=== PATIENT | female | born 1970 | race Caucasian/White ===

== ENCOUNTER → 2019-01-06 08:21 | Outpatient (CLI) | payer OTHER, SELFPAY ==
[2019-01-06 09:23] LABS: Add Manual Diff / Slide Review NO; Basophils Absolute Auto 0 /uL (0-100); Basophils Percent Auto 0.7 % (0-2); Eosinophils Absolute Auto 100 /uL (0-450); Hematocrit 40.1 % (36-46); Hemoglobin 14.1 g/dL (12.0-16.0); Lymphocytes Absolute Auto 2200 /uL (1100-4500); Lymphocytes Percent Auto 34.5 % (25-40); Mean Corpuscular HGB Conc 35.1 % (30-36); Mean Corpuscular Hemoglobin 32.9 PG (26-34); Mean Corpuscular Volume 93.6 fL (80-100); Monocytes Absolute Auto 300 /uL (0-900); Monocytes Percent Auto 4.5 % (3-14); Neutrophils Absolute Auto 3800 /uL (1500-7000); Neutrophils Percent Auto 59.3 % (50-75); Platelet Count 191 X10^3/uL (150-400); Red Blood Cell Count 4.28 X10^6/uL (4.0-5.2); Red Cell Distribution Width 12.6 % (11.6-14.8); White Blood Cell Count 6.5 X10^3/uL (4.5-11.0)
[2019-01-06 09:31] LABS: BUN Creatinine Ratio 15.7 (6-22); Blood Urea Nitrogen 11 mg/dL (7-17); Calcium 9.4 mg/dL (8.4-10.2); Carbon Dioxide 25 mmol/L (22-32); Chloride 105 mmol/L (98-107); Cholesterol 210 mg/dL (140-199); Estimated Glomerular Filt Rate > 60.0 mL/min (>60); Glucose 100 mg/dL (70-100); HEMOLYSIS < 15 (0-50); Potassium 4.4 mmol/L (3.4-5.1); Sodium 139 mmol/L (137-145)
[2019-01-06 10:04] LABS: Erythrocyte Sedimentation Rate 8 MM/HR (0-20)
== END ==
PROVIDERS: Family Provider Internal Medicine; PCP Internal Medicine; Visit Provider Physician Assistant
DX: R07.89 Other chest pain (principal); R30.0 Dysuria
CPT/HCPCS: 36415; 80048; 82465; 85025; 85651; 87077; 87086; 87186

== ENCOUNTER 2019-01-09 14:33 | Emergency (ER) | payer OTHER, SELFPAY ==
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
[2019-01-09 15:05] VITALS: BP 121/77; PULSE 60; RESP 18; TEMP 36.6; O2SAT 98; BMI 25.0
[2019-01-09] MEDS: LIDOCAINE PATCH 1 EACH ADH..PATCH TOP (15:55)
[2019-01-09] MEDS: KETOROLAC 60 MG/2 ML VIAL IM (15:55)
[2019-01-09 16:12] VITALS: BP 118/46; PULSE 62; RESP 16; O2SAT 98
[2019-01-09 16:22] VITALS: BP 121/76; PULSE 61
== END 2019-01-09 16:23 | disposition home or self-care (01) ==
PROVIDERS: Emergency Provider Emergency Medicine; Family Provider Internal Medicine; PCP Internal Medicine
DX: S16.1XXA Strain of muscle, fascia and tendon at neck level, initial encounter (principal); S06.0X0A Concussion without loss of consciousness, initial encounter; S13.4XXA Sprain of ligaments of cervical spine, initial encounter; V89.2XXA Person injured in unspecified motor-vehicle accident, traffic, initial encounter; Y92.410 Unspecified street and highway as the place of occurrence of the external cause
CPT/HCPCS: 96372; 99283; J1885

== ENCOUNTER 2022-01-23 11:32 | Emergency (ER) | payer OTHER, SELFPAY ==
[2022-01-23] VITALS (24 sets, daily range): BP systolic 118–138; BP diastolic 6–77; PULSE 79–93; RESP 18–20; TEMP 36.5–37.4; O2SAT 96–100; BMI 24.5
[2022-01-23 12:42] LABS: Add Manual Diff / Slide Review NO; Basophils Absolute Auto 0 /uL (0-100); Basophils Percent Auto 0.3 % (0-2); Eosinophils Absolute Auto 0 /uL (0-450); Eosinophils Percent Auto 0.4 % (2-4); Lymphocytes Absolute Auto 1600 /uL (1100-4500); Lymphocytes Percent Auto 52.9 % (25-40); Mean Corpuscular Hemoglobin 34.5 PG (26-34); Mean Corpuscular Volume 95.9 fL (80-100); Monocytes Absolute Auto 200 /uL (0-900); Monocytes Percent Auto 7.9 % (3-14); Neutrophils Absolute Auto 1200 /uL (1500-7000); Neutrophils Percent Auto 38.5 % (50-75); Platelet Count 175 X10^3/uL (150-400); Red Blood Cell Count 1.93 X10^6/uL (4.0-5.2); Red Cell Distribution Width 18.7 % (11.6-14.8); White Blood Cell Count 3.1 X10^3/uL (4.5-11.0)
[2022-01-23 12:44] LABS: Hematocrit 18.5 % (36-46); Hemoglobin 6.6 g/dL (12.0-16.0)
--- NOTE | 2022-01-23 12:46 | ED_ITS ---
HPI - Recheck/Abnormal Lab/Rx General Chief Complaint: Recheck/Abnormal Lab/Rx Stated Complaint: HRC levels are low/Chemo pt Time Seen by Provider: 01/23/22 12:02 Source: patient Mode of arrival: Ambulatory History of Present Illness HPI narrative: Patient is a 51-year-old female. Is currently under the care by Oncology for chemotherapy. She gets chemotherapy every Friday. She has routine labs drawn on Friday. She had labs drawn yesterday. She received a call from her oncologist last evening stating that she needed a blood transfusion today before they would do chemotherapy. She is here for the blood transfusion. She states that she generally feels unwell but this is been normal for her after her chemotherapy. No fevers. Did have a nosebleed last evening. Has never had a blood transfusion in the past. Related Data Previous Rx's Medication Instructions Recorded ketorolac 10 mg tablet 10 mg PO TID PRN pain #10 tabs 01/09/19 lidocaine 5 % topical patch 1 patch topical DAILY #15 ea 01/09/19 (Lidoderm) Allergies Allergy/AdvReac Type Severity Reaction Status Date / Time Sulfa (Sulfonamide Allergy Intermediate REALLY SICK Verified 01/09/19 15:05 Antibiotics) [SULFA (SULFONAMIDE ANTIBIOTICS)] Review of Systems Constitutional Constitutional: Reports fatigue and Denies fever(s) ENT Ears, Nose, Mouth, and Throat: Reports system reviewed and no additional compl aints, except as documented Cardiovascular Cardiovascular: Denies chest pain and Denies dyspnea Respiratory Respiratory: Denies dyspnea Gastrointestinal Gastrointestinal: Denies abdominal pain Musculoskeletal Musculoskeletal: Reports system reviewed and no additional complaints, except as documented Integumentary/Breasts Skin/Breast: Reports system reviewed and no additional complaints, except as documented Endocrine Endocrine: Reports fatigue Hematologic/Lymphatic On Anticoagulants: No Patient History Medical History Breast cancer Social History Smoking Status: Never smoker Smoking Status: Never smoker Substance Use Type: does not use Exam Initial Vital Signs Initial Vital Signs: Vital Signs Temperature 97.7 F 01/23/22 11:44 Pulse Rate 83 01/23/22 11:44 Respiratory Rate 20 01/23/22 11:44 Blood Pressure 138/68 01/23/22 11:44 Pulse Oximetry 100 01/23/22 11:44 Oxygen Delivery Method 01/23/22 11:44 HENMT Head: normal to inspection Resp Effort & Inspection: normal respiratory effort Cardio Rate: regular rate GI Inspection: normal to inspection Skin General: no rashes or lesions noted Neuro General: patient alert, patient awake and moves all extremities Extrem General: capillary refill normal Psych Appearance: grossly normal and well kempt Course Orders Ordered: ED Orders 01/23/22 12:14 Complete Blood Count AUTO DIFF Stat Packed Cells Stat Type and Screen Stat Discontinued Medications Heparin Sodium (Porcine) (Heparin 500 Unit/5 Ml Port Flush) 500 unit IV PRN PRN PRN Reason: Flush Last Admin: 01/23/22 19:04 Dose: 500 unit Documented By: DUTCH Vital Signs Vital signs: Vital Signs - 8 hr 01/23/22 11:44 01/23/22 14:46 01/23/22 14:50 Temperature 97.7 F 99.1 F 99.1 F Pulse Rate 83 81 Respiratory Rate 20 18 Blood Pressure 138/68 133/72 Pulse Oximetry 100 Oxygen Delivery Method Room Air 01/23/22 15:01 01/23/22 14:35 01/23/22 14:36 Temperature 99.1 F Pulse Rate 82 83 Respiratory Rate 18 Blood Pressure 137/72 133/72 Pulse Oximetry 100 Oxygen Delivery Method 01/23/22 14:36 01/23/22 15:00 01/23/22 15:01 Temperature 99.1 F Pulse Rate 82 80 Respiratory Rate 18 18 Blood Pressure 137/72 Pulse Oximetry 99 99 Oxygen Delivery Method 01/23/22 15:01 01/23/22 15:30 01/23/22 15:31 Temperature 99.1 F 99 F Pulse Rate 80 86 80 Respiratory Rate 18 Blood Pressure Pulse Oximetry 98 98 98 Oxygen Delivery Method 01/23/22 15:31 01/23/22 16:00 01/23/22 16:00 Temperature 98.6 F Pulse Rate 84 Respiratory Rate 18 Blood Pressure 126/60 125/66 Pulse Oximetry 99 Oxygen Delivery Method 01/23/22 16:00 01/23/22 15:30 01/23/22 16:30 Temperature 98.6 F 99 F 98.6 F Pulse Rate 84 80 79 Respiratory Rate 18 18 18 Blood Pressure 125/66 126/60 123/77 Pulse Oximetry Oxygen Delivery Method 01/23/22 16:48 01/23/22 17:02 01/23/22 17:19 Temperature 98.7 F 98.6 F 99.1 F Pulse Rate 89 85 91 H Respiratory Rate 18 18 18 Blood Pressure 123/77 118/62 125/59 L Pulse Oximetry Oxygen Delivery Method 01/23/22 16:30 01/23/22 16:30 01/23/22 16:46 Temperature 98.7 F Pulse Rate 82 Respiratory Rate 18 Blood Pressure 123/77 123/77 Pulse Oximetry 98 Oxygen Delivery Method 01/23/22 16:46 01/23/22 17:03 01/23/22 17:04 Temperature Pulse Rate 88 90 Respiratory Rate 18 Blood Pressure 118/62 Pulse Oximetry 98 98 Oxygen Delivery Method 01/23/22 17:04 01/23/22 17:23 01/23/22 17:23 Temperature 98.6 F 99 F Pulse Rate 82 93 H Respiratory Rate 18 Blood Pressure 125/59 L Pulse Oximetry 98 97 Oxygen Delivery Method 01/23/22 18:00 01/23/22 18:00 01/23/22 17:30 Temperature 99.1 F 99.1 F 99 F Pulse Rate 89 89 Respiratory Rate 18 18 Blood Pressure 127/62 125/60 Pulse Oximetry Oxygen Delivery Method 01/23/22 17:30 01/23/22 17:30 01/23/22 18:00 Temperature Pulse Rate 89 Respiratory Rate Blood Pressure 125/60 127/62 Pulse Oximetry 97 Oxygen Delivery Method 01/23/22 18:00 01/23/22 18:35 01/23/22 18:30 Temperature 98.9 F Pulse Rate 89 84 Respiratory Rate 18 Blood Pressure 132/6 L 132/66 Pulse Oximetry 96 Oxygen Delivery Method 01/23/22 18:30 01/23/22 19:02 01/23/22 19:00 Temperature 98.9 F 99.3 F Pulse Rate 84 92 H Respiratory Rate 18 18 Blood Pressure 121/68 121/68 Pulse Oximetry 97 Oxygen Delivery Method 01/23/22 19:00 Temperature 99.3 F Pulse Rate 92 H Respiratory Rate 18 Blood Pressure Pulse Oximetry 96 Oxygen Delivery Method MDM - Recheck/Abnormal Lab/Rx Lab Data Result diagrams: 01/23/22 12:14 Labs: Lab Results 01/23/22 01/23/22 Range/Units 12:14 12:14 WBC 3.1 L (4.5-11.0) X10^3/uL RBC 1.93 L (4.0-5.2) X10^6/uL Hgb 6.6 L* (12.0-16.0) g/dL Hct 18.5 L* (36-46) % MCV 95.9 (80-100) fL MCH 34.5 H (26-34) PG MCHC 36.0 (30-36) % RDW 18.7 H (11.6-14.8) % Plt Count 175 (150-400) X10^3/uL Neut % (Auto) 38.5 L (50-75) % Lymph % (Auto) 52.9 H (25-40) % Stephenson % (Auto) 7.9 (3-14) % Eos % (Auto) 0.4 L (2-4) % Baso % (Auto) 0.3 (0-2) % Neut # (Auto) 1200 L (4722-9433) /uL Lymph # (Auto) 1600 (7488-6006) /uL Stephenson # (Auto) 200 (0-900) /uL Eos # (Auto) 0 (0-450) /uL Baso # (Auto) 0 (0-100) /uL Blood Type O Positive Antibody Screen Negative Crossmatch See Detail MDM Narrative Medical decision making narrative: Patient is anemic here in the emergency department. She received 2 units of packed red blood cells and tolerated the procedure well. Will have her follow- up with her oncologist tomorrow for chemotherapy. Discharge Plan Departure Patient Disposition: Home Clinical Impression: Anemia Instructions: Anemia, DI for Blood Transfusion Activity Restrictions/Additional Instructions: Continue to take all of your medications as directed and tomorrow contact your oncologist for a follow-up. Return to the emergency department for any new or worsening symptoms. Prescriptions: No Action ketorolac 10 mg tablet 10 mg PO TID PRN (Reason: pain) Qty: 10 0RF lidocaine [Lidoderm] 5 % adhesive patch,medicated 1 patch TOP DAILY Qty: 15 0RF Rx Instructions: leave on most painful area for up to 12 hrs Referrals: Mira Max MD [Primary Care Provider] - Visit Report Forms: Patient Portal/API
== END 2022-01-23 19:10 | disposition home or self-care (01) ==
PROVIDERS: Emergency Provider Emergency Medicine; Family Provider Internal Medicine; PCP Internal Medicine
DX: D64.9 Anemia, unspecified (principal)
CPT/HCPCS: 36415; 36430; 85025; 86850; 86900; 86901; 99284; P9016; J1642

== ENCOUNTER → 2022-12-12 10:30 | Outpatient (CLI) | payer OTHER, SELFPAY | PROVIDERS: Family Provider Internal Medicine; PCP Internal Medicine; Visit Provider Nurse Practitioner Family | DX: R30.0 Dysuria (principal) | CPT/HCPCS: 87077; 87086; 87186 ==

== ENCOUNTER → 2023-07-12 12:59 | Outpatient (CLI) | payer OTHER, SELFPAY | PROVIDERS: Family Provider Internal Medicine; PCP Internal Medicine; Visit Provider Nurse Practitioner Family | DX: R30.0 Dysuria (principal) | CPT/HCPCS: 87077; 87086; 87186 ==

== ENCOUNTER → 2023-08-16 13:52 | Outpatient (CLI) | payer OTHER, SELFPAY | PROVIDERS: Family Provider Internal Medicine; PCP Internal Medicine; Visit Provider Nurse Practitioner Family | DX: R30.0 Dysuria (principal) | CPT/HCPCS: 87077; 87086; 87186 ==

== ENCOUNTER → 2024-01-08 18:11 | Outpatient (CLI) | payer OTHER, SELFPAY | PROVIDERS: Family Provider Internal Medicine; PCP Internal Medicine; Visit Provider Physician Assistant Surgical | DX: R30.0 Dysuria (principal); N39.0 Urinary tract infection, site not specified; R31.9 Hematuria, unspecified | CPT/HCPCS: 87077; 87086; 87186 ==

== ENCOUNTER → 2024-03-22 10:42 | Outpatient (CLI) | payer OTHER, SELFPAY | PROVIDERS: Family Provider Internal Medicine; PCP Internal Medicine; Visit Provider Nurse Practitioner Family | DX: R30.0 Dysuria (principal) | CPT/HCPCS: 87077; 87086; 87186 ==

== ENCOUNTER → 2024-04-06 17:55 | Outpatient (CLI) | payer OTHER, SELFPAY | PROVIDERS: Family Provider Internal Medicine; PCP Internal Medicine; Visit Provider Physician Assistant Surgical | DX: R30.0 Dysuria (principal) | CPT/HCPCS: 87086 ==

== ENCOUNTER → 2024-05-12 15:02 | Outpatient (CLI) | payer OTHER, SELFPAY ==
--- NOTE | 2024-05-12 15:04 | DI.CT.S_ITS ---
PROCEDURE: CT IVP A/P W/WO INDICATIONS: Frequent urinary tract infections TECHNIQUE: Optional 5 mm thick noncontrast images acquired from the diaphragm to the symphysis pubis. After the administration of intravenous contrast, 5 mm thick images acquired from the diaphragm to the symphysis pubis after a 10-minute delay. 2 mm thick coronal and sagittal reformats were then performed of the kidneys and ureters. For radiation dose reduction, the following was used: automated exposure control, adjustment of mA and/or kV according to patient size. COMPARISON: None. FINDINGS: Image quality: Diagnostic. Kidneys and Ureters: Both kidneys are normal in size, without hydronephrosis or nephrolithiasis. No perinephric fat stranding. There is normal bilateral renal enhancement. Renal calyces appear normal in morphology when filled with contrast. Opacified portions of both ureters demonstrate normal caliber Bladder: Bladder wall thickness is normal. No calcified bladder stones. OTHER: Lower chest: No pleural effusion. Breast implants. Liver: No solid mass. Gallbladder: No radiopaque gallstones or wall thickening. Biliary ducts: No biliary dilation. Pancreas: No ductal dilation. Spleen: Size is within normal limits. Adrenal Glands: No adrenal nodules. Stomach and Bowel: Normal colonic caliber, without significant wall thickening. Normal appendix. Peritoneum: No abnormal intraperitoneal fluid. No free air. Ventral Wall: No hernia. Abdominal Nodes: No retroperitoneal or mesenteric adenopathy by size criteria. Vessels: Aorta and inferior vena cava are normal in size. Calcified atherosclerotic plaque. PELVIS: Pelvic Organs: Anteverted uterus. Pelvic Nodes: No enlarged lymph nodes. Miscellaneous: No inguinal hernias are seen. Bones: No aggressive osseous abnormality. IMPRESSION: 1. No kidney stones. No hydronephrosis. 2. No solid renal mass. No upper urinary tract filling defect. Dictated by: Shashank West M.D. on 05/13/2024 at 8:54 Approved by: Shashank West M.D. on 05/13/2024 at 9:03
[2024-05-12 15:29] LABS: Estimated Glomerular Filt Rate > 60 mL/min (>60)
== END ==
PROVIDERS: Family Provider Internal Medicine; PCP Internal Medicine; Referring Provider Urology; Visit Provider Urology
DX: R33.9 Retention of urine, unspecified (principal)
CPT/HCPCS: 36415; 74178; 82565; Q9967